=== PATIENT | male | born 1955 | race African-American/Black ===

== ENCOUNTER 2017-01-25 10:50 | Emergency (ER) | payer SELFPAY ==
[~2017-01-25] VITALS: Ht 185.4 cm; Wt 85.0 kg
[2017-01-25] MEDS ORDERED: KETOROLAC 60MG/2ML VIAL IM ONE (19:00)
[2017-01-25 19:45] VITALS: BP 138/85
[2017-01-25] MEDS ORDERED: HYDROCODONE/ACETAMINOPHEN 5/325MG TABLET PO STA (20:46)
== END 2017-01-25 20:50 | disposition home or self-care (01) ==
LOC: ER 13:12
DX: M25.551 Pain in right hip (principal); M25.50 Pain in unspecified joint
CPT/HCPCS: 72100; 73502; 96372; 99284; J1885